=== PATIENT | male | born 1970 | race Caucasian/White ===

== ENCOUNTER 2019-05-24 10:05 | Emergency (ER) | payer BC ==
[2019-05-24 10:11] VITALS: PULSE 66; RESP 18; TEMP 98.1
[2019-05-24] MEDS ORDERED: KETOROLAC 60 MG/2 ML VIAL IM STA (10:11)
--- NOTE | 2019-05-24 10:18 | ED ---
General Adult HPI - General Chief complaint: Fall Stated complaint: RT ANKLE INJURY Time Seen by Provider: 05/24/19 10:05 Source: EMS, RN notes reviewed, old records reviewed Mode of arrival: EMS Limitations: no limitations - History of Present Illness Initial comments: This is a 48-year-old male who presents to the emergency department after he slipped down some steps at home and twisted his right ankle. Patient denies hitting his head denies any neck pain patient denies any numbness weakness. Patient denies any loss of conscious. Patient denies any chest or back pain. Patient denies any abdominal pain. Patient denies any upper extremity pain. Patient's only lower extremity pain is right ankle pain patient denies any knee pain or foot pain on that leg. - Related Data Home Medications Medication Instructions Recorded Confirmed Tamsulosin [Flomax] 0.4 mg PO DAILY 12/09/15 12/12/15 buPROPion HCL [Wellbutrin SR] 150 mg PO BID 12/09/15 12/12/15 Previous Rx's Medication Instructions Recorded Hydrocodone/Acetaminophen [Tinnie 1 each PO Q4HR PRN #14 tab 05/24/19 5-325] Ibuprofen [Motrin] 600 mg PO Q6HR PRN #20 tab 05/24/19 Allergies Allergy/AdvReac Type Severity Reaction Status Date / Time No Known Allergies Allergy Verified 12/12/15 11:33 Review of Systems ROS Statement: Those systems with pertinent positive or pertinent negative responses have been documented in the HPI. ROS Other: All systems not noted in ROS Statement are negative. Past Medical History Past Medical History: Hypertension Additional Past Medical History / Comment(s): hx peptic ulcer, blood in stool History of Any Multi-Drug Resistant Organisms: None Reported Past Surgical History: Orthopedic Surgery Additional Past Surgical History / Comment(s): Rt hand surgery Past Anesthesia/Blood Transfusion Reactions: No Reported Reaction Past Psychological History: No Psychological Hx Reported Smoking Status: Former smoker Past Alcohol Use History: Occasional Past Drug Use History: None Reported - Past Family History Mother Family Medical History: No Reported History General Exam - General Exam Comments Initial Comments: GENERAL: Patient is well-developed and well-nourished. ENT: Neck is soft and supple. No significant lymphadenopathy is noted. Oropharynx is clear. Moist mucous membranes. Neck has full range of motion without eliciting any pain. EYES: The sclera were anicteric and conjunctiva were pink and moist. Extraocular movements were intact and pupils were equal round and reactive to light. Eyelids were unremarkable. PULMONARY: Unlabored respirations. Good breath sounds bilaterally. No audible rales rhonchi or wheezing was noted. CARDIOVASCULAR: There is a regular rate and rhythm without any murmurs gallops or rubs. ABDOMEN: Soft and nontender with normal bowel sounds. SKIN: Skin is clear with no lesions or rashes and otherwise unremarkable. NEUROLOGIC: Patient is alert and oriented x3. Cranial nerves II through XII are grossly intact. Motor and sensory are also intact. Normal speech, volume and content. Symmetrical smile. MUSCULOSKELETAL: Patient is right ankle is tender medially and laterally and there is quite a bit of soft tissue swelling on the lateral aspect. Patient has no proximal leg tenderness patient has no foot tenderness. Patient has normal dorsal pedis pulses. LYMPHATICS: No significant lymphadenopathy is noted PSYCHIATRIC: Normal psychiatric evaluation. Limitations: no limitations Course Vital Signs 05/24/19 10:07 Temperature 98.1 F Pulse Rate 66 Respiratory 18 Rate Blood Pressure 139/94 O2 Sat by Pulse 97 Oximetry Procedures - Orthopedic Splinting/Casting Injury #1 Side: left Lower Extremity Injury Location: short leg Lower Extremity Immobilizer: posterior splint Medical Decision Making - Medical Decision Making X-ray showed a distal fibular fracture slight displacement also look like there was ligament disruption of the medial malleolus Disposition Clinical Impression: Fall, Ankle fracture Disposition: HOME SELF-CARE Condition: Good Instructions (If sedation given, give patient instructions): Ankle Fracture (ED), Fall Prevention (ED) Prescriptions: Ibuprofen [Motrin] 600 mg PO Q6HR PRN #20 tab PRN Reason: For pain Hydrocodone/Acetaminophen [Tinnie 5-325] 1 each PO Q4HR PRN #14 tab PRN Reason: Pain Is patient prescribed a controlled substance at d/c from ED?: Yes When asked, does pt state using other controlled substances?: No If prescribed controlled substance>3 days was MAPS reviewed?: Prescribed <3 Days If opioid is for acute pain is fill amount 7 days or less?: Yes If Rx opioid, was Start Talking consent form obtained?: Yes Referrals: Gregorio Womack MD [Primary Care Provider] - 1-2 days Time of Disposition: 11:24
--- NOTE | 2019-05-24 10:32 | XR ---
EXAMINATION TYPE: XR ankle complete RT DATE OF EXAM: 05/24/2019 COMPARISON: NONE HISTORY: Pain TECHNIQUE: Frontal, lateral and oblique images of the right ankle are obtained. COMPARISON: None. FINDINGS: There is fracture of the lateral malleolus with disruption of the ankle mortise. Bony fragm ents noted posteriorly. Soft tissue swelling identified. IMPRESSION: There is fracture of the lateral malleolus with disruption of the ankle mortise.
[2019-05-24] MEDS ORDERED: HYDROmorphone 1 MG/ML 1 ML SYRINGE IM STA (10:55)
[2019-05-24 11:36] VITALS: BP 130/90
== END 2019-05-24 11:29 | disposition home or self-care (01) ==
LOC: EC 10:05
DX: S82.61XA Displaced fracture of lateral malleolus of right fibula, initial encounter for closed fracture (principal); I10 Essential (primary) hypertension; Z79.899 Other long term (current) drug therapy; Z87.891 Personal history of nicotine dependence; W10.9XXA Fall (on) (from) unspecified stairs and steps, initial encounter; Y92.009 Unspecified place in unspecified non-institutional (private) residence as the place of occurrence of the external cause
CPT/HCPCS: 73610; 96372 ×2; 29515; 99284; J1885; J1170

== ENCOUNTER 2022-03-27 06:09 | Emergency (ER) | payer BC ==
[2022-03-27 06:20] VITALS: PULSE 84; RESP 18; TEMP 97.8
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
[2022-03-27 06:42] VITALS: BP 135/86
[2022-03-27] MEDS ORDERED: ACET/COD 300 MG/30 MG STARTER PACK 6 TAB BTL PO STA (06:44)
[2022-03-27] MEDS ORDERED: HYDROcodone/APAP 5-325MG 1 EACH TAB PO STA (06:44)
[2022-03-27] MEDS ORDERED: IBUPROFEN 600 MG TAB PO STA (06:44)
== END 2022-03-27 06:59 | disposition home or self-care (01) ==
LOC: EC 06:09
DX: M25.562 Pain in left knee (principal); I10 Essential (primary) hypertension; Z79.899 Other long term (current) drug therapy; V49.9XXA Car occupant (driver) (passenger) injured in unspecified traffic accident, initial encounter
CPT/HCPCS: 99283; 99284

== ENCOUNTER → 2022-04-03 | Outpatient (CLI) | payer OTHER, BC ==
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
== END | disposition home or self-care (01) ==
LOC: RADMRIMAIN 16:56
PROVIDERS: ATTEND Orthopaedic Surgery
DX: S83.242A Other tear of medial meniscus, current injury, left knee, initial encounter (principal)